=== PATIENT | female | born 1995 | race Hispanic/Latino ===

== ENCOUNTER 2017-11-05 11:15 | Inpatient (IN) | payer SELFPAY ==
[~2017-11-05] VITALS: Ht 144.8 cm; Wt 49.0 kg
[~2017-11-05 11:15] MED LIST: IBUPROFEN600 MG PO; IRON325 M1 PO; LORTAB 7.57.5 MG PO; MACRODANTIN100 MG PO; PRENATAL1 TA1; TYLENOL325 MG PO
--- NOTE | 2017-11-05 11:26 | NUR ---
PT TO ROOM FOR EXAM
[2017-11-05 11:56] LABS: IMMATURE GRANULOCYTES 0.7 % (0.0-1.0); MEAN CELL VOLUME 90.7 fL CALC (80.0-100.0); MEAN CORPUSCULAR HGB 30.2 pG CALC (26.0-32.0); MEAN CORPUSCULAR HGB CONC 33.3 g/L CALC (32.0-36.0); NEUT# 17.95 thou/uL (2.00-7.15); RED BLOOD COUNT 4.63 mill/uL (4.20-5.60); RED CELL DISTRI WIDTH 13.6 % (11.5-15.5)
[2017-11-05 12:00] LABS: URINE BLOOD DIPSTICK MODERATE (NEGATIVE); URINE COLOR YELLOW; URINE GLUCOSE - DIPSTICK NEGATIVE (NEGATIVE); URINE KETONE 40 mg/dL (NEGATIVE); URINE NITRITE - DIPSTICK NEGATIVE (Negative); URINE PROTEIN - DIPSTICK 100 mg/dL (NEG-TRACE); URINE SPECIFIC GRAVITY 1.025
[2017-11-05 12:04] LABS: URINE BILIRUBIN - DIPSTICK SMALL (NEGATIVE); URINE CLARITY CLOUDY; URINE LEUK ESTERASE MODERATE (NEGATIVE)
[2017-11-05 12:05] LABS: BARBITURATES NEGATIVE (NEGATIVE); COCAINE NEGATIVE (NEGATIVE); METHADONE NEGATIVE (NEGATIVE); OXCYCODONE NEGATIVE (NEGATIVE); TETRAHYDROCANNABIONOL NEGATIVE (NEGATIVE); TRICYLIC ANTIDEPRESSANTS POSITIVE (NEGATIVE)
[2017-11-05 12:10] LABS: ALKALINE PHOSPHATASE 157 u/l (38-126); ANION GAP 21 (6-22 (CALC)); BILIRUBIN, TOTAL 0.6 mg/dL (0.0-1.4); BUN 15 mg/dL (7-17); BUN/CREATININE RATIO 23 (12-20 (CALC)); CALCIUM 9.4 mg/dL (8.4-10.2); CARBON DIOXIDE 18 mmol/l (22-30); CHLORIDE 106 mmol/l (95-108); CREATININE 0.6 mg/dL (0.5-1.0); GFR > 60 ML/MIN (>=60 (CALC)); GFR FOR AFR.AMER. > 60 ML/MIN (>=60 (CALC)); GLUCOSE 111 mg/dL (65-105); POTASSIUM 3.4 mmol/l (3.5-5.1); SGOT/AST 57 u/l (14-36); SGPT/ALT 50 u/l (9-52); SODIUM 141 mmol/l (137-146); TOTAL PROTEIN 7.2 g/dL (6.3-8.2)
[2017-11-05 12:11] LABS: URINE SQUAMOUS EPITHELIAL CELL MODERATE EPI/hpf (0-FEW); URINE WBC 50-100 WBC/hpf (0-5)
--- NOTE | 2017-11-05 12:14 | NUR ---
TEMP NOW 102.9. EDP MADE AWARE.
--- NOTE | 2017-11-05 12:33 | NUR ---
PT NOW WITH IV ESTABLISHED, BLOOD DRAWN, CULTURES DRAWN, ABX INFUSING ALONG WITH IVF. PT CONTINUES TO APPEAR ANXIOUS. TODDLER DAUGHTER AT BEDSIDE.
--- NOTE | 2017-11-05 13:23 | NUR ---
ORDERED CT SCAN. DISCUSSED OPTIONS WITH PT FOR TRANSPORT FOR CT SCAN AND ADMISSION TO HOSPITAL. PT STATES SHE DOES NOT HAVE ANYONE THAT CAN HELP TAKE CARE OF (APPROX) 2YO DAUGHTER. HOUSE SUP CONSULTED.
--- NOTE | 2017-11-05 13:41 | NUR ---
BONIFACIO JASON SPOKE WITH MD & PT. DECIDED PT BE ADMITTED FOR SEPSIS. PT STATES HER SISTER CAN COME TAKE CARE OF HER DAUGHTER WHEN SHE GET OFF FROM WORK @ [employer]. ADMITTING MD AGREED TO ADMIT PT W/DAUGHTER AND SEND PT FOR THE CAT SCAN WHEN SOMEONE COMES TO TAKE CARE OF PT. PT ASKED FOR A WC TO CAR SO SHE CAN GET SUPPLIES (DIAPERS/WIPES/TOYS) FOR HER TODDLER.
--- NOTE | 2017-11-05 13:54 | NUR ---
PT DENIES TELLING HOUSE SUP SHE NEEDED TRANSPORT TO HER CAR. PT STATES SHE CAME IN A TAXI. PT HAS A DIAPER BAG WITH HER IN ROOM.
--- NOTE | 2017-11-05 13:57 | NUR ---
PT NOW WITH SECOND BAG OF IVF RUNNING.
--- NOTE | 2017-11-05 14:06 | NUR ---
TEMP 102.7 UPON RECHECK. REPORT CALLED TO JIGAR LEVY, TO FLOOR SOON.
--- NOTE | 2017-11-05 14:10 | NUR ---
PT ARRIVED FROM ER VIA STRETCHER WITH DAUGHTER ON THE STRETCHER . IV SITE IS FREE FROM REDNESS OR EDEMA. FAMILY WAS CALLED BY PT RE: PICKING UP CHILD.
--- NOTE | 2017-11-05 14:19 | NUR ---
PT TAKEN TO ROOM 274 WITHOUT INCIDENT.
[2017-11-05 14:21] VITALS: BP 110/73
--- NOTE | 2017-11-05 15:15 | NUR ---
ASSESSMENT IS COMPLETED: PT C/O LOWER QUAD PAIN. ALSO HAS A FEVER. STATED' IT IS BURNING AND ACHING". MEDICATION WAS PRESCRIBED AND GIVEN. CONTINUE TO OSBERVE AND MONITOR.
--- NOTE | 2017-11-05 16:10 | NUR ---
[facility] CALLED AND INFORMED OF THE CT ORDER FOR RAJI WILL BE ON THEIR WAY. INFORMED PT AND CONSENT SIGNED. IV SITE IS FREE FROM REDNESS OR EDEMA. CONTINUE TO OSBERVE AND MONITOR.
--- NOTE | 2017-11-05 16:30 | NUR ---
PT BEING TRANSPORTED TO [facility] FOR CT SCAN VIA [facility]. CONTINUE TO OSBERVE AND MONITOR.
--- NOTE | 2017-11-05 18:07 | NUR ---
PT REMAINS AT [facility] FOR CT SCAN.
--- NOTE | 2017-11-05 18:19 | NUR ---
DIANE ROLON. CT SCAN RESULTS ARE NEG/.
--- NOTE | 2017-11-05 18:34 | NUR ---
INFORMED DR LEACH RE: CT RESULTS. PT CONTINUES TO BE OFF THE UNIT ENROUTE TO BE COMING BACK FROM [facility]
--- NOTE | 2017-11-05 19:21 | NUR ---
PT RETURNED FROM [facility] VIA [facility]. PT TOLERATED TRANSFER WELL. CONTINUE TO OSBERVE AND MONITOR.
--- NOTE | 2017-11-05 19:25 | NUR ---
PT RESTING IN SEMI FOWLERS POSITION;INTRODUCED SELF TO PT;PT DENIES ANY ABDOMINAL PAIN AT THIS TIME;PT RE-ORIENTED TO ROOM AND CALL LIGHT SYSTEM;#20G TO RAC FLUSHED,PATENT AND NS RESTARTED @ 125ML/HR;PT EDUCATED TO CALL FOR ASSISTANE IF NEEDED;BED IN LOWEST POSITION WITH CALL LIGHT IN REACH;WILL CONTINUE TO MONITOR
[2017-11-05 20:15] VITALS: BP 97/66
--- NOTE | 2017-11-05 20:40 | NUR ---
PT RESTING IN BED WITH VISITOR AT BEDSIDE;VS OBTAINED WITH A TEMP OF 99.8;BLANKETS REMOVED,AC LOWERED AND PT MEDICATED WITH TYLENOL 650MG PO;ASSESSMENT COMPLETED;IV SITE INFUSING NS WELL AND IS FREE FROM EDEMA;RESPIRATIONS EVEN AND UNLABORED ON RA;MULTIPLE CUTS NOTED TO FOREARMS;PT VOICES NO COMPLAINTS OF PAIN AT THIS TIME;PT EDUCATED TO CALL FOR ASSISTANCE IF NEEDED;SAFETY PRECAUTIONS REINFORCED;CALL LIGHT IN REACH;WILL CONTINUE TO MONITOR FOR EFFECT
[2017-11-05 20:42] VITALS: BP 105/61
--- NOTE | 2017-11-05 21:50 | NUR ---
PT RESTING IN BED WITH VISITOR AT BEDSIDE;TEMP RE-CHECK @ 100.0;PT NOTED TO BE WRAPPED UP IN BLANKETS;WRITTER INFORMED PT THAT HER TEMP IS NOT DECREASING RATHER INCREASING AND THAT SHE NEEDS TO KEEP THE BLANKETS OFF UNTIL HER TEMP IS LOWERED,PT AGREES;PT COMPLAINS OF HEAD AND LEFT LOWER QUAD PAIN RATING 8/10 ON THE PAIN SCALE;PT MEDICATED WITH PRN TORADOL 15MG IVP FOR PAIN AND FEVER;IV FLUIDS CONTINUE TO INFUSE WELL TO RAC;PT DENIES ANY OTHER NEEDS AT THIS TIME;WILL CONTINUE TO MONITOR
[2017-11-05 22:42] VITALS: BP 94/60
--- NOTE | 2017-11-05 23:50 | NUR ---
PT RESTING IN SEMI FOWLERS POSITION WITH MOTHER AT BEDSIDE;PT DENIES ANY PAIN OR DISCOMFORTS AT THIS TIME;RESPIRATIONS EVEN AND UNLABORED ON RA;IV FLUIDS INFUSING WELL TO RAC;TEMP RE-CHECK @ 98.8;PT DENIES ANY NEEDS AND IS EDUCATED TO CALL FOR ASSISTANCE IF NEEDED;CALL LIGHT IN REACH
[2017-11-06 04:47] VITALS: BP 104/64
--- NOTE | 2017-11-06 04:50 | NUR ---
PT APPEARS TO BE SLEEPING WITH EYES CLOSED;WOKE PT TO OBTAIN VS;PT DENIES ANY PAIN OR DISCOMFORTS;RESPIRATIONS EVEN AND UNLABORED ON RA;TEMP 98.8 AT THIS TIME;PT REPORTS VOIDING 5 TIMES THROUGHOUT THE NIGHT,ENCOURAGED PT TO VOID INTO HAT SO THAT ACCURATE I&O'S CAN BE OBTAINED,PT AGREES;IV FLUIDS INFUSING WELL TO RAC;PT EDUCATED TO CALL FOR ASSISTANCE IF NEEDED;CALL LIGHT IN REACH;WILL CONTINUE TO MONITOR
--- NOTE | 2017-11-06 05:20 | NUR ---
PT COMPLAINS OF HEAD PAIN RATING 8/10 ON THE PAIN SCALE AND REQUESTS PAIN MEDICATION;PT MEDICATED WITH PRN TORADOL 15MG IVP;PT REPORTS HAVING CHRONIC MIGRAINES AT HOME;WILL CONTINUE TO MONITOR
[2017-11-06 05:28] LABS: HEMATOCRIT 35.3 % (37.0-47.0); HEMOGLOBIN 11.5 g/dl (12.0-16.0); MEAN CELL VOLUME 92.7 fL CALC (80.0-100.0); MEAN CORPUSCULAR HGB 30.2 pG CALC (26.0-32.0); MEAN CORPUSCULAR HGB CONC 32.6 g/L CALC (32.0-36.0); RED BLOOD COUNT 3.81 mill/uL (4.20-5.60); RED CELL DISTRI WIDTH 13.8 % (11.5-15.5)
[2017-11-06 05:39] LABS: ANION GAP 12 (6-22 (CALC)); BUN 10 mg/dL (7-17); BUN/CREATININE RATIO 19 (12-20 (CALC)); CALCIUM 8.2 mg/dL (8.4-10.2); CARBON DIOXIDE 21 mmol/l (22-30); CHLORIDE 112 mmol/l (95-108); CREATININE 0.5 mg/dL (0.5-1.0); GFR > 60 ML/MIN (>=60 (CALC)); GFR FOR AFR.AMER. > 60 ML/MIN (>=60 (CALC)); GLUCOSE 122 mg/dL (65-105); POTASSIUM 3.3 mmol/l (3.5-5.1); SODIUM 142 mmol/l (137-146)
[2017-11-06 07:40] VITALS: BP 105/64
--- NOTE | 2017-11-06 07:40 | NUR ---
ASSESSMENT IS COMPLETED: IV SITE IS FREE FROM REDNESS OR EDEMA. BREATH SOUNDS ARE CLEAR. CONTINUE TO OBSERVE AND MONITOR.
--- NOTE | 2017-11-06 12:15 | NUR ---
PT IS RELAXING IN BED VISITING WITH FAMILY NO DISTRESS NOTED. IV SITE IS FREE FROM REDNESS OR EDEMA.
--- NOTE | 2017-11-06 16:15 | NUR ---
PT IS RELAXING AND VISITING WITH FAMILY AND FRIENDS., NO DISTRES NOTED. IV SITE IS FREE FROM REDNESS OR EDEMA CONTINUE TO OBSERVE AND MONITOR,
[2017-11-06 16:50] VITALS: BP 102/64
[2017-11-06 18:35] VITALS: BP 113/81
--- NOTE | 2017-11-06 19:40 | NUR ---
PT RESTING IN SUPINE POSITION WITH BLANKET AND ICE PACK OVER HER HEAD;PT REPORTS HAVING HEADACHE PAIN RATING 10/10 ON THE PAIN SCALE AND REQUESTS PRN TORADOL;PT MEDICATED WITH TORADOL 15MG IVP;RESPIRATIONS EVEN AND UNLABORED ON RA;#20G TO RAC INFUSING NS @ 125ML/HR,SITE APPEARS HEALTHY AND FREE FROM EDEMA;CLEAR LUNG SOUNDS;MULTIPLE OLD CUT DANIELS NOTED TO BILATERAL ARMS OTHERWISE SKIN INTACT;SAFETY PRECAUTIONS REINFORCED AND PT EDUCATED TO CALL FOR ASSISTANCE IF NEEDED;CALL LIGHT IN REACH;WILL CONTINUE TO MONITOR
--- NOTE | 2017-11-07 00:25 | NUR ---
PT APPEARS TO BE SLEEPING IN SEMI FOWLERS POSITION;NO S/S OF DISTRESS NOTED;RESPIRATIONS EVEN AND UNLABORED ON RA;IV FLUIDS INFUSING WELL TO RAC;BED IN LOWEST POSITION WITH CALL LIGHT IN REACH;WILL CONTINUE TO MONITOR
[2017-11-07 04:40] LABS: HEMATOCRIT 30.6 % (37.0-47.0); HEMOGLOBIN 10.4 g/dl (12.0-16.0); MEAN CELL VOLUME 89.7 fL CALC (80.0-100.0); MEAN CORPUSCULAR HGB 30.5 pG CALC (26.0-32.0); RED BLOOD COUNT 3.41 mill/uL (4.20-5.60); RED CELL DISTRI WIDTH 13.7 % (11.5-15.5)
[2017-11-07 04:50] LABS: ANION GAP 11 (6-22 (CALC)); BUN 4 mg/dL (7-17); BUN/CREATININE RATIO 9 (12-20 (CALC)); CALCIUM 8.4 mg/dL (8.4-10.2); CARBON DIOXIDE 20 mmol/l (22-30); CHLORIDE 109 mmol/l (95-108); CREATININE 0.4 mg/dL (0.5-1.0); GFR > 60 ML/MIN (>=60 (CALC)); GFR FOR AFR.AMER. > 60 ML/MIN (>=60 (CALC)); GLUCOSE 115 mg/dL (65-105); POTASSIUM 3.4 mmol/l (3.5-5.1); SODIUM 136 mmol/l (137-146)
--- NOTE | 2017-11-07 04:50 | NUR ---
PT RESTING IN SUPINE POSITION COMPLAINING OF HEADACHE PAIN RATING 9/10 ON THE PAIN SCALE AND REQUESTING PAIN MEDICATION;PT MEDICATED WITH PRN TORADOL 15MG IVP;RESPIRATIONS REMAIN EVEN AND UNLABORED;VS OBTAINED;IV FLUIDS INFUSING WELL TO RAC,SITE FREE FROM REDDNESS;PT DENIES ANY OTHER NEEDS AT THIS TIME AND IS EDUCATED TO CALL FOR ASSISTANCE IF NEEDED;CALL LIGHT IN REACH;WILL CONTINUE TO MONITOR FOR EFFECTIVENESS
[2017-11-07 04:51] VITALS: BP 112/76
--- NOTE | 2017-11-07 07:00 | NUR ---
SHIFT CHANGE REPORT FROM GLADYS VALENCIA SLEEPING, BREATHING EVEN AND NON-LABORED, NO SIGN DISCOMFORT AT THIS TIME, IVF INFUSING, TELE MONITOR IN PLACE, CALL DUTTA IN REACH.
[2017-11-07 09:00] LABS: MAGNESIUM 1.9 mg/dL (1.6-2.3)
[2017-11-07 09:03] VITALS: BP 106/68
--- NOTE | 2017-11-07 10:14 | NUR ---
PT REFUSED VACCINE AT TIME OFFERED BUT ADVISED AND ENCOURAGED TO TAKE THEM WHEN HEADACHE HAS ABATED.
[2017-11-07 11:21] VITALS: BP 101/70
--- NOTE | 2017-11-07 11:23 | NUR ---
Visited pt room for med rec. Verified that pt does not have any diagnosed medicatal conditions, does not take any prescribed medications, and has no medication or food allergies. Attempted to discuss her UTI and review current medications and side effects, but pt appeared annoyed started to get an attitude so decided to let her rest and left. Before leaving I asked pt if she had any questions or concerns regarding current diagnosis or medications and she said no.
--- NOTE | 2017-11-07 12:00 | NUR ---
UNABLE TO TOLERATE MEAL AND C/O NAUSEA, CONCERN ADDRESSED, WILL CONTINUE TO MONITOR.
[2017-11-07 15:25] VITALS: BP 112/82
--- NOTE | 2017-11-07 16:00 | NUR ---
ALL PAIN CONCERNS ADDRESSED, NAUTIOUS AT THIS TIME, DRY HEAVING AND VOMITTING, EXPORT FREIGHT SPECIALIST NOTIFIED AND WROTE NEW ORDERS
--- NOTE | 2017-11-07 19:00 | NUR ---
REPORT RECIEVED FROM GABRIELLE ALVARADO. PT AWAKE AND HAS NO COMPLIANT OF PAIN AT THIS TIME. IV PATENT. SAFETY PRECAUTIONS REINFORCED. CALL LIGHT WITHIN REACH.
[2017-11-08 00:27] VITALS: BP 111/75
--- NOTE | 2017-11-08 00:34 | NUR ---
PT RESTING IN BED AND APPEARS TO BE SLEEPING WITH EYES CLOSED. RESP EVEN AND UNLABORED. NO ACUTE SIGNS OF DISTRESS NOTED. IV PATENT. WILL CONTINUE TO MONITOR.
[2017-11-08 05:06] VITALS: BP 105/69
--- NOTE | 2017-11-08 05:47 | NUR ---
PT RESTING IN BED. PT HAS NO COMPLAINT OF PAIN AT THIS TIME. IV PATENT. RESP EVEN AND UNLABORED. NO ACUTE CHANGES IN PT CONDITION. CALL LIGHT WITHIN REACH.
[2017-11-08 05:53] LABS: HEMATOCRIT 31.2 % (37.0-47.0); HEMOGLOBIN 10.5 g/dl (12.0-16.0); IMMATURE GRANULOCYTES 0.7 % (0.0-1.0); MEAN CELL VOLUME 90.2 fL CALC (80.0-100.0); MEAN CORPUSCULAR HGB 30.3 pG CALC (26.0-32.0); MEAN CORPUSCULAR HGB CONC 33.7 g/L CALC (32.0-36.0); NEUT# 6.69 thou/uL (2.00-7.15); RED BLOOD COUNT 3.46 mill/uL (4.20-5.60); RED CELL DISTRI WIDTH 13.5 % (11.5-15.5)
[2017-11-08 06:10] LABS: ANION GAP 14 (6-22 (CALC)); BUN 5 mg/dL (7-17); BUN/CREATININE RATIO 11 (12-20 (CALC)); CALCIUM 8.6 mg/dL (8.4-10.2); CARBON DIOXIDE 19 mmol/l (22-30); CHLORIDE 109 mmol/l (95-108); CREATININE 0.5 mg/dL (0.5-1.0); GFR > 60 ML/MIN (>=60 (CALC)); GFR FOR AFR.AMER. > 60 ML/MIN (>=60 (CALC)); GLUCOSE 81 mg/dL (65-105); MAGNESIUM 2.1 mg/dL (1.6-2.3); POTASSIUM 3.5 mmol/l (3.5-5.1); SODIUM 138 mmol/l (137-146)
--- NOTE | 2017-11-08 06:45 | NUR ---
ROOM ROUNDING PERFORMED WITH MILDRED BENSON WEATHER STRIPPER NURSE. PT RESTING COMFORTABLY, DENIES PAIN, DENIES NEEDS OR CONCERNS. CALL LIGHT WITHIN REACH. INSTRUCTED PT TO CALL FOR ASSISTANCE, PT VERBALIZES UNDERSTANDING.
--- NOTE | 2017-11-08 09:00 | NUR ---
MD IN ROOM AT THIS TIME. PT PLAN OF CARE IS TO DISCHARGE, PT STATES UNDERSTANDING AND IS EAGER TO GET HOME.
[2017-11-08 09:18] VITALS: BP 106/68
[2017-11-08] MEDS ORDERED: CIPROFLOXACN500 MG PO (09:53)
--- NOTE | 2017-11-08 10:20 | NUR ---
DISCHARGE INSTRUCTIONS GIVEN AT THIS TIME. PT WAITING ON RIDE. WILL USE CALL LIGHT WHEN RIDE AVAILABLE.
--- NOTE | 2017-11-08 10:40 | NUR ---
Discharge instructions given. Patient verbalizes understanding of same. Discharged in stable condition via Wheelchair to Home with family. All belongings sent with pt.
== END 2017-11-08 10:26 | disposition home or self-care (01) | DRG 690 ==
LOC: ED 11:15 → ED-I 13:35 → ED 13:49 → MS2 13:50
PROVIDERS: Emergency Medicine; Nurse Practitioner Family; ADMIT Internal Medicine; ATTEND Internal Medicine
DX: N10 Acute pyelonephritis (principal); B96.20 Unspecified Escherichia coli [E. coli] as the cause of diseases classified elsewhere; F32.9 Major depressive disorder, single episode, unspecified; F41.9 Anxiety disorder, unspecified; E87.6 Hypokalemia; G43.909 Migraine, unspecified, not intractable, without status migrainosus
CPT/HCPCS: J0692